=== PATIENT | female | born 1995 | race Caucasian/White ===

== ENCOUNTER 2021-03-07 15:42 | Emergency (ER) | payer OTHER, MEDICAID ==
[~2021-03-07] VITALS: Ht 170.2 cm; Wt 140.6 kg
--- NOTE | ~2021-03-07 | EMS ---
[place] [address] EMS Patient Care Report Name: LUPE EVERETT Room: [facility]#: [id number] Admission: 03/07/21 Attend Phys: Discharge: Date of : [birth year] Report #: [id number] THIS REPORT FOR: //name// Report Transmitted: 03/07/2021 16:21 EMS Care Summary [facility]ident [id number] @ 03/07/2021 14:41 Incident Location [facility] [place] [address] Patient LUPE EVERETT Female, 26 Years 1995 Patient Address [facility] [place] [address] Patient History Hypertension (HTN),Morbid Obesity,Irritable Bowel Syndrome,Gastric Ulcer,Anxiety,Chronic Pain,Hernia (Abdominal), Patient Allergies No known allergies, Patient Medications Bentyl, Metoprolol, Alprazolam, Fluoxetine, Olanzapine, Zofran, Carafate, Chief Complaint I have had abdominal pain Disposition Transported No Lights/[place] Reason Abdominal Pain/Problems Transported To [facility] Narrative Med 1 response requested to [address] for a female who is dehydrated and having abdominal pain. Med 1 copied the call and began our response to the scene. [place] [address] EMS Patient Care Report Name: LUPE EVERETT Room: [facility]#: [id number] Admission: 03/07/21 Attend Phys: Discharge: Date of : [birth year] Report #: [id number] Inside sitting up right at the kitchen table we located a 26 year old female. Patient alert with a GCS of 15. She stated that she's had upper generalized abdominal pain for the past year. She's been to multiple Drs and hospitals trying to get help but she's doesn't feel heard. She was at [facility] the week prior where she was diagnosed with an ulcer. She was given Zofran and Bentyl but hasn't been taking it much as she is still nauseated. She has been able to drink fluids but has not been able to eat. She advised that the pain began to get horrible today around 0700 when she woke up. She denied that she ever gets any relief from the pain at home. She does get relief from her pain when she is given Morphine. Patient got up and ran to the trash can where she tried to vomit however nothing came up. She then began to yell that she didn't feel good. Vitals were assessed at her side. She was then moved to the cot where she was covered and secured. She was taken to the ambulance and placed inside. Vitals were monitored. 12 lead ECG was obtained. IV access was obtained in the left hand. She was given Zofran and Toradol IV. We began our response to [facility] per her request. She was advised that [facility] was on high volume which means she would be in triage. Patient did not want that and chose to go to [place] [facility]. Patient then began to scream that she was not feeling well again. Patient advised that the Zofran didn't help. She was then given Phenergen IV. Report was called in to the ER via med radio. Upon arrival to the ER patient was taken inside and to triage. She was assisted from the cot to a chair. Report was given to the nurse taking over care. Signatures were obtained and med 1 cleared to return to service. Initial Vitals @15:36P: 110,R: 18,BP: 108/80,Pain: 6/10,GCS: 15,SpO2: 99,Revised Trauma: 12, @15:22P: 100,R: 20,BP: 116/70,Pain: 6/10,GCS: 15,SpO2: 100,Revised Trauma: 12, @15:37P: 97,R: 22,BP: 116/70,GCS: 15,SpO2: 100,Revised Trauma: 12, @15:09P: 110,R: 22,BP: 116/70,Pain: 6/10,GCS: 15,SpO2: 100,Revised Trauma: 12, @14:54P: 104,R: 22,BP: 148/90,Pain: 6/10,GCS: 15,Temp: 97.3F,Glucose: 93,SpO2: 100,Revised Trauma: 12, Assessments @14:55MENTAL:Person Oriented,Event Oriented,Place Oriented,Time Oriented,SKIN:HEENT:LUNG SOUNDS:General: Nausea,General: Vomiting,ABDOMEN:General: Nausea,General: Vomiting,PELVIS//GI:EXTREMITIES:PULSE:Radial: 2+ Normal,NEURO:@15:35MENTAL:Place Oriented,Person Oriented,Time Oriented,Event Oriented,SKIN:HEENT:LUNG SOUNDS:General: Nausea,ABDOMEN:General: Nausea,PELVIS//GI:EXTREMITIES:PULSE:Radial: 2+ Normal,NEURO: [facility] [address] [place] [address] EMS Patient Care Report Name: LUPE EVERETT Room: [facility]#: [id number] Admission: 03/07/21 Attend Phys: Discharge: Date of : [birth year] Report #: [id number] Impression Abdominal Pain Procedures @14:54 ALS Assessment Response: UnchangedSucceeded @15:11 IV Therapy - Saline Lock 10cc (22 ga) Site: Hand-Left Response: UnchangedSucceeded @15:13 Zofran - 4 Milligrams (mg) - Intravenous (IV) Response: Unchanged @15:14 Toradol - 30 Milligrams (mg) - Intravenous (IV) Response: Unchanged @15:30 Phenergan - 12.5 Milligrams (mg) - Intravenous (IV) Response: Unchanged @15:09 12-Lead ECG Response: UnchangedSucceeded Timeline 14:40,Call Received 14:41,Dispatched 14:41,En Route 14:52,On Scene 14:53,At Patient 14:54,BP: 148/90 M,PULSE: 104,RR: 22 R,SPO2: 100 Ox,ETCO2: ,B,PAIN: 6,GCS: 15, 14:54,ALS Assessment,Response: UnchangedSucceeded, 15:09,Depart Scene 15:09,12-Lead ECG,Response: UnchangedSucceeded, 15:09,BP: 116/70 M,PULSE: 110,RR: 22 R,SPO2: 100 Ox,ETCO2: ,BG: ,PAIN: 6,GCS: 15, 15:11,IV Therapy - Saline Lock 10cc 22 ga Site: Hand-Left,Response: UnchangedSucceeded, 15:13,Zofran - 4 Milligrams (mg) - Intravenous (IV),Response: Unchanged 15:14,Toradol - 30 Milligrams (mg) - Intravenous (IV),Response: Unchanged 15:22,BP: 116/70 M,PULSE: 100,RR: 20 R,SPO2: 100 Ox,ETCO2: ,BG: ,PAIN: 6,GCS: 15, 15:30,Phenergan - 12.5 Milligrams (mg) - Intravenous (IV),Response: Unchanged 15:36,BP: 108/80 M,PULSE: 110,RR: 18 R,SPO2: 99 Ox,ETCO2: ,BG: ,PAIN: 6,GCS: 15, 15:37,BP: 116/70 M,PULSE: 97,RR: 22 R,SPO2: 100 Ox,ETCO2: ,BG: ,PAIN: ,GCS: 15, 15:39,At Destination 16:16,Call Closed Disclaimer v1.1 Copyright 2020 [employer] This EMS Care Summary contains data elements from the applicable legal record (which may be displayed differently). It is designed to provide pertinent information for the following purposes: continuity of care, clinical quality, and state data reporting. [place] [address] EMS Patient Care Report Name: LUPE EVERETT Room: [facility]#: [id number] Admission: 03/07/21 Attend Phys: Discharge: Date of : [birth year] Report #: [id number] and administrators of the receiving hospital in [facility]'s Patient Tracker. All data is provided "as is."
[2021-03-07 17:11] LABS: ABSOLUTE BASOPHILS 0.1 thou/uL (0.0-0.2); ABSOLUTE LYMPHOCYTES 1.9 thou/uL (0.8-5.3); ABSOLUTE MONOCYTES 0.5 thou/uL (0.0-1.2); ABSOLUTE NEUTROPHILS 9.7 thou/uL (1.6-8.1); BASOPHILS 0.5 %; EOSINOPHILS 0.3 %; HEMATOCRIT 41.8 % (37.0-47.0); HEMOGLOBIN 13.6 gm/dL (12.0-15.0); LYMPHOCYTES 15.3 %; MCHC 32.5 g/dL (28.0-37.0); MCV 73.7 fL (80.0-100.0); MPV 8.3 fl. (7.2-11.1); NUCLEATED RBCS 0 /100WBC; PLATELET COUNT* 328 thou/uL (150-400); POLYS 79.9 %; RBC 5.67 mil/uL (4.20-5.00); RDW-CV 15.5 % (10.5-14.5); WBC 12.2 thou/uL (4.0-11.0)
[2021-03-07 17:28] LABS: ALBUMIN 3.9 g/dL (3.4-5.0); CALCIUM 9.4 mg/dL (8.5-10.1); CREATININE 1.1 mg/dL (0.6-1.3); POTASSIUM 3.8 mmol/L (3.5-5.1); TOTAL BILIRUBIN 0.5 mg/dL (<0.1-1.0); TOTAL PROTEIN 8.8 g/dL (6.4-8.2)
[2021-03-07] MEDS ORDERED: PROMS25 WY RECTAL (17:56)
[2021-03-07 18:05] VITALS: BP 109/76
--- NOTE | 2021-03-08 08:47 | EKG ---
[place] [address] ELECTROCARDIOGRAM REPORT Name: LUPE EVERETT Room: [facility]#: [id number] Admission: 03/07/21 Attend Phys: Discharge: 03/07/21 Date of : [birth year] Date of Service: 03/07/21 1551 Report #: [id number] THIS REPORT FOR: //name// [facility] ED Test Date: 2021-03-07 Test Time: 15:51:49 Pat Name: LUPE EVERETT Department: Room: Gender: F Environmental Compliance Technician: FAYE : 1995 Requested By: Kathleen Aquino Order Number: [id number] MD: Azam Morris Measurements Intervals [place] Rate: 106 P: 59 OK: 125 QRS: 31 QRSD: 91 T: -3 QT: 357 QTc: 475 Interpretive Statements Sinus tachycardia Borderline prolonged QT interval Baseline wander in lead(s) V6 No previous ECG available for comparison Electronically Signed On 03-08-2021 8:47:28 [employer] by Azam Morris [email or web address] <ELECTRONICALLY SIGNED> By: Azam Morris MD, [facility] 03/08/21 0847 1551 1551 Azam Morris MD, [facility] /EPI
== END 2021-03-07 18:06 | disposition left against medical advice (07) ==
LOC: M.ERS 15:42
PROVIDERS: Nurse Practitioner Family
DX: R10.13 Epigastric pain (principal); Z20.822 Contact with and (suspected) exposure to COVID-19; R11.2 Nausea with vomiting, unspecified; E66.01 Morbid (severe) obesity due to excess calories